=== PATIENT | female | born 1970 | race African-American/Black ===

== ENCOUNTER 2017-05-17 00:10 | Emergency (ER) | payer OTHER ==
[~2017-05-17] VITALS: Ht 162.6 cm; Wt 118.0 kg
[~2017-05-17 00:10] MED LIST: AMLODIPINE5 MG PO; AMOXICILLIN500 MG OR; AMOXICILLIN500 MG PO; ATORVASTATIN CA40 MG PO; B COMPLE4 PO; BENADRYL 25MG C25 MG PO; CALCIUM500 M1 OR; CIMETIDINE400 MG PO; CITALOPRAM20 MG; CYCLOBENZAPR10 MG PO; EDGE PO; FLEXERIL OR; FLEXERIL PO; FLEXERIL5 M1 PO; HYDROCODONE/ACE1 TA1 OR; IBUPROFEN800 MG PO; IRON325 MG OR; KEFLEX500 M1 PO; LIPITOR40 MG PO; LISINOPRIL10 MG; LOPRESSOR25 M1 PO; LORATADINE10 M1 PO; LORTAB 5 OR; LORTAB 5/3255 MG PO; MECLIZINE25 MG PO; MEDDOSEPAK PO; METFORMIN500 MG PO; NAPROSYN500 MG PO; NAPROXEN375 MG OR; NO HOME MEDS; NORVASC2.5 MG PO; NORVASC5 MG PO; OMEGA-3 FISH1000 MG PO; OS-CAL 500500 M1 PO; OXYCODONE/ACETA1 TA1 PO; PERCOCET 10/31 COMBO PO; PROAIR HFA IN; ROBITUSSI2 OR; TAM75CAP PO; ZPAK OR
[2017-05-17 01:39] LABS: HEMATOCRIT 35.9 % (37.0-47.0); HEMOGLOBIN 11.5 g/dl (12.0-16.0); IMMATURE GRANULOCYTES 0.2 % (0.0-1.0); MEAN CELL VOLUME 82.7 fL CALC (80.0-100.0); MEAN CORPUSCULAR HGB 26.5 pG CALC (26.0-32.0); NEUT# 5.43 thou/uL (2.00-7.15); RED BLOOD COUNT 4.34 mill/uL (4.20-5.60); RED CELL DISTRI WIDTH 14.2 % (11.5-15.5)
[2017-05-17 01:53] LABS: ALBUMIN 4.4 g/dL (3.2-5.0); ALKALINE PHOSPHATASE 80 u/l (38-126); ANION GAP 17 (6-22 (CALC)); BUN 9 mg/dL (7-17); BUN/CREATININE RATIO 13 (12-20 (CALC)); CALCIUM 9.9 mg/dL (8.4-10.2); CARBON DIOXIDE 25 mmol/l (22-30); CHLORIDE 104 mmol/l (95-108); CREATININE 0.7 mg/dL (0.5-1.0); GFR > 60 ML/MIN (>=60 (CALC)); GFR FOR AFR.AMER. > 60 ML/MIN (>=60 (CALC)); GLUCOSE 164 mg/dL (65-105); POTASSIUM 3.6 mmol/l (3.5-5.1); SGOT/AST 17 u/l (14-36); SGPT/ALT 29 u/l (9-52); SODIUM 142 mmol/l (137-146); TOTAL PROTEIN 7.3 g/dL (6.3-8.2)
[2017-05-17 02:01] LABS: INFLUENZA A NONE DETECTED (NONE DETECT); INFLUENZA B NONE DETECTED (NONE DETECT)
[2017-05-17 02:05] LABS: MYOGLOBIN 17 ng/mL (0 - 62)
[2017-05-17 04:00] LABS: URINE BILIRUBIN - DIPSTICK NEGATIVE (NEGATIVE); URINE BLOOD DIPSTICK TRACE-LYSED (NEGATIVE); URINE CLARITY CLEAR; URINE COLOR YELLOW; URINE GLUCOSE - DIPSTICK NEGATIVE (NEGATIVE); URINE KETONE TRACE mg/dL (NEGATIVE); URINE LEUK ESTERASE NEGATIVE (NEGATIVE); URINE NITRITE - DIPSTICK NEGATIVE (Negative); URINE PROTEIN - DIPSTICK NEGATIVE (NEG-TRACE); URINE UROBILINOGEN - DIPSTICK 0.2 E.U./dL (0.2)
[2017-05-17] MEDS ORDERED: AMOXICILLIN500 M2 PO ×2 (04:03→04:21)
[2017-05-17 04:30] VITALS: BP 149/72
== END 2017-05-17 04:36 | disposition home or self-care (01) | DRG 153 ==
LOC: ED 00:10
PROVIDERS: Emergency Medicine
DX: J02.0 Streptococcal pharyngitis (principal); R50.9 Fever, unspecified

== ENCOUNTER 2018-09-02 22:00 | Emergency (ER) | payer BC ==
[~2018-09-02] VITALS: Ht 162.6 cm; Wt 113.6 kg
[~2018-09-02 22:00] MED LIST changes: +AMOXICILLIN500 M2 PO
[2018-09-02] MEDS ORDERED: FARXIGA10 MG PO (22:19)
[2018-09-02] MEDS ORDERED: MELOXICAM15 MG PO (22:19)
[2018-09-02] MEDS ORDERED: DILTIAZEM240 MG PO (22:20)
[2018-09-02] MEDS ORDERED: DULOXETINE HCL30 MG PO (22:21)
[2018-09-02] MEDS ORDERED: ASPIRINCHW 81MG PO (22:21)
[2018-09-02] MEDS ORDERED: TRULICITY0.75 MG/0. (22:22)
[2018-09-02 23:09] LABS: CPK 51 u/l (30-165)
[2018-09-02 23:20] LABS: MYOGLOBIN 17 ng/mL (0 - 62)
[2018-09-03] MEDS ORDERED: BACLOFEN10 MG PO (01:20)
[2018-09-03 01:30] VITALS: BP 134/80
== END 2018-09-03 01:34 | disposition home or self-care (01) | DRG 556 ==
LOC: ED 22:00
PROVIDERS: Family Medicine
DX: M62.838 Other muscle spasm (principal); I10 Essential (primary) hypertension; E11.9 Type 2 diabetes mellitus without complications; Z96.652 Presence of left artificial knee joint

== ENCOUNTER → 2018-10-04 | Outpatient (REF) | payer BC ==
[~2018-10-04] MED LIST changes: +ASPIRINCHW 81MG PO; +ATORVASTATIN CA10 MG PO; +BACLOFEN10 MG PO; +DILTIAZEM240 MG PO; +DULOXETINE HCL30 MG PO; +FARXIGA10 MG PO; +FLUCONAZOLE150 MG PO; +MELOXICAM15 MG PO; +PROPRANOLOL80 M1 PO; +TRULICITY0.75 MG/0. SC
[2018-10-04 11:37] LABS: GFR > 60 ML/MIN (>=60 (CALC)); GFR FOR AFR.AMER. > 60 ML/MIN (>=60 (CALC))
== END | disposition home or self-care (01) | DRG 103 ==
LOC: CT 11:12
PROVIDERS: ATTEND Nurse Practitioner Family
DX: R51 Headache (principal); J32.9 Chronic sinusitis, unspecified

== ENCOUNTER → 2018-10-11 | Outpatient (REF) | payer BC | END | disposition home or self-care (01) | DRG 556 | LOC: MRI 09-24 10:30 | PROVIDERS: ATTEND Orthopaedic Surgery | DX: M25.512 Pain in left shoulder (principal); Z98.890 Other specified postprocedural states ==

== ENCOUNTER 2018-10-22 06:33 | Observation (INO) | payer BC ==
[~2018-10-22] VITALS: Ht 162.6 cm; Wt 120.7 kg
[~2018-10-22 06:33] MED LIST changes: -ATORVASTATIN CA10 MG PO; -FLUCONAZOLE150 MG PO; -PROPRANOLOL80 M1 PO
--- NOTE | 2018-10-22 06:50 | NUR ---
WHEELCHAIR TO ER ROOM 9, TO BED
--- NOTE | 2018-10-22 07:05 | NUR ---
NITRO BID PLACED TO RIGHT UPPER CHEST TO TREAT CHEST PAIN 03/26.
[2018-10-22] MEDS ORDERED: FLUCONAZOLE150 MG PO (07:14)
[2018-10-22] MEDS ORDERED: ATORVASTATIN CA10 MG PO (07:15)
[2018-10-22] MEDS ORDERED: PROPRANOLOL80 M1 PO (07:15)
[2018-10-22 07:17] LABS: HEMOGLOBIN 11.9 g/dl (12.0-16.0); IMMATURE GRANULOCYTES 0.4 % (0.0-5.0); MEAN CELL VOLUME 83.5 fL CALC (80.0-100.0); MEAN CORPUSCULAR HGB 26.2 pG CALC (26.0-32.0); MEAN CORPUSCULAR HGB CONC 31.3 g/L CALC (32.0-36.0); NEUT# 4.23 thou/uL (2.00-7.15); RED BLOOD COUNT 4.55 mill/uL (4.20-5.60); RED CELL DISTRI WIDTH 13.8 % (11.5-15.5)
--- NOTE | 2018-10-22 07:28 | NUR ---
PATIENT REPORTS INCREASED CHEST PAIN, PAIN NOTED TO BE REPRODUCIBLE. RATES /10. REPORTS NO CHANGE IN PAIN AFTER NITRO BID PACED TO CHEST. INFORMED.
[2018-10-22 07:33] LABS: ALBUMIN 4.4 g/dL (3.2-5.0); ALKALINE PHOSPHATASE 79 u/l (38-126); ANION GAP 14 (6-22 (CALC)); BILIRUBIN, TOTAL 0.6 mg/dL (0.0-1.4); BUN 12 mg/dL (7-17); BUN/CREATININE RATIO 27 (12-20 (CALC)); CARBON DIOXIDE 24 mmol/l (22-30); CHLORIDE 103 mmol/l (95-108); CREATININE 0.5 mg/dL (0.5-1.0); GFR > 60 ML/MIN (>=60 (CALC)); GFR FOR AFR.AMER. > 60 ML/MIN (>=60 (CALC)); POTASSIUM 4.1 mmol/l (3.5-5.1); SGOT/AST 28 u/l (14-36); SODIUM 138 mmol/l (137-146); TOTAL PROTEIN 7.1 g/dL (6.3-8.2)
[2018-10-22 07:45] LABS: MYOGLOBIN 15 ng/mL (0 - 62)
[2018-10-22 07:55] LABS: ACT PARTIAL THROMBO TIME 27.1 SECONDS (20.0-32.5); INTERNATIONAL NORMALIZED RATIO 0.9 RATIO (0.7-1.3); PROTHROMBIN TIME 9.4 SECONDS (9.0-12.5)
--- NOTE | 2018-10-22 08:04 | NUR ---
PATIENT REPORTS CHEST PRESSURE 5/10 AFTER 30 MG OF TORADOL IV GIVEN. AT BEDSIDE.
[2018-10-22 08:28] LABS: URINE BILIRUBIN - DIPSTICK NEGATIVE (NEGATIVE); URINE BLOOD DIPSTICK TRACE-LYSED (NEGATIVE); URINE COLOR YELLOW; URINE GLUCOSE - DIPSTICK 100 mg/dL (NEGATIVE); URINE KETONE NEGATIVE (NEGATIVE); URINE LEUK ESTERASE TRACE (NEGATIVE); URINE NITRITE - DIPSTICK NEGATIVE (Negative); URINE PROTEIN - DIPSTICK NEGATIVE (NEG-TRACE); URINE SPECIFIC GRAVITY 1.015; URINE UROBILINOGEN - DIPSTICK 0.2 E.U./dL (0.2)
[2018-10-22 08:34] LABS: BARBITURATES NEGATIVE (NEGATIVE); COCAINE NEGATIVE (NEGATIVE); METHADONE NEGATIVE (NEGATIVE); OXCYCODONE NEGATIVE (NEGATIVE); TETRAHYDROCANNABIONOL NEGATIVE (NEGATIVE); TRICYLIC ANTIDEPRESSANTS NEGATIVE (NEGATIVE)
--- NOTE | 2018-10-22 09:00 | NUR ---
PATIENT REPORTS CHEST PRESSURE 5/10. INFORMED OF WAIT TIME. VERBAL UNDERSTANDING. FAMILY AT BEDSIDE.
--- NOTE | 2018-10-22 09:05 | NUR ---
STROKE SCALE COMPLETED AFTER PATIENT REPORTS RIGHT SIDE OF FACE FEELING "DIFFERECT" NO FACIAL DROOP, PATIENT DENIES ANY SENSORY CHANGE. NIH SCALE OF 0.
--- NOTE | 2018-10-22 09:07 | NUR ---
GENEVIEVE REPORTS NURSE NOT AVAILABLE FOR REPORT AT THIS TIME.
--- NOTE | 2018-10-22 09:18 | NUR ---
REPORT GIVEN TO JOSEFINA FRANK.
--- NOTE | 2018-10-22 09:35 | NUR ---
PATIENT TRANSPORTED TO [facility] VIA STRETCHER WITH TELE IN PLACE. JOSEFINA FRANK INFORMED OF PATIENT ARRIVAL TO FLOOR. CARE RELINQUISHED.
--- NOTE | 2018-10-22 09:36 | NUR ---
PT TRANSPORTED TO [facility] VIA STRETCHER ACCOMPIANED BY EZEQUIEL BHAGAT. PT AMBULATED FROM STRETCHER TO BED W/ STEADY GAIT. VS DONE. PT A/O X3. SPEECH IS CLEAR. RESP EVEN AND UNLABORED. LUNG SOUNDS CLEAR. BOWEL SOUNDS ACTIVE X4. #20 RAC SL. FLUSHED AND PATENT. SITE APPEARS HEALTHY. SKIN INTACT. PT DENIES ANY PAIN OR NEEDS AT THIS TIME. POC DISCUSSED. SAFETY PRECAUTIONS IN PLACE. CALL LIGHT IN REACH. WILL CONTINUE TO MONITOR.
[2018-10-22 10:52] VITALS: BP 157/93
[2018-10-22 12:00] VITALS: BP 133/80
--- NOTE | 2018-10-22 12:15 | NUR ---
PT RESTING IN BED. C/O SLIGHT DULL CHEST PAIN. 3 OUT OF 10 ON PAIN SCALE. BED ADJUSTED FOR COMFORT. RELAXATION TECHNIQUES IN PLACE. PT DENIES ANY FURTHER NEEDS. CALL LIGHT IN REACH. WILL CONTINUE TO MONITOR.
--- NOTE | 2018-10-22 16:00 | NUR ---
PT RESTING IN BED. NO C/O PAIN OR NEEDS. TELE IN PLACE. DAUGHTER AT BEDSIDE. WILL CONTINUE TO MONITOR.
--- NOTE | 2018-10-22 19:00 | NUR ---
RECEIVED REPORT FROM DAY SHIFT NURSE. PT RESTING IN BED WATCHING TV, NO NEEDS AT THIS TIME. CALL CHERRY IN REACH. WILL CONTINUE TO MONITOR.
[2018-10-22 19:35] VITALS: BP 132/67
--- NOTE | 2018-10-22 22:05 | NUR ---
PT RESTING QUIETLY IN BED FAMILY AT BEDSIDE. PT IS A&0 x3. ASSESMENT COMPLETED AT THIS TIME( SEE INTERVENTIONS). LUNG SOUNDS CLEAR, HEART SOUNDS NORMAL, NO C/O CHEST PAIN, BOWEL SOUNDS ACTIVE. NO SWELLING OR EDEMA NOTED. NO NEEDS ATT THIS TIME CALL CHERRY IN REACH. WILL CONTINUE TO MONITOR.
[2018-10-22 23:40] VITALS: BP 118/63
--- NOTE | 2018-10-23 | NUR ---
PT RESTING QUIETYL IN BED WITH EYES CLOESD. NO S/S OF DISTRESS NOTED.
[2018-10-23 04:15] VITALS: BP 121/80
--- NOTE | 2018-10-23 05:00 | NUR ---
PT REQUESTING TO TAKE A SHOWER AT THIS TIME. PT SET UP AND LINENS CHANGED. WILL CONTINUE TO MO NITOR.
[2018-10-23 05:33] LABS: HEMATOCRIT 36.3 % (37.0-47.0); HEMOGLOBIN 11.3 g/dl (12.0-16.0); IMMATURE GRANULOCYTES 0.3 % (0.0-5.0); MEAN CELL VOLUME 85.2 fL CALC (80.0-100.0); MEAN CORPUSCULAR HGB 26.5 pG CALC (26.0-32.0); MEAN CORPUSCULAR HGB CONC 31.1 g/L CALC (32.0-36.0); NEUT# 3.63 thou/uL (2.00-7.15); RED BLOOD COUNT 4.26 mill/uL (4.20-5.60)
[2018-10-23 06:00] LABS: ALKALINE PHOSPHATASE 68 u/l (38-126); AMYLASE 69 u/l (30-110); ANION GAP 13 (6-22 (CALC)); BILIRUBIN, TOTAL 0.5 mg/dL (0.0-1.4); BUN 15 mg/dL (7-17); BUN/CREATININE RATIO 27 (12-20 (CALC)); CARBON DIOXIDE 28 mmol/l (22-30); CHLORIDE 101 mmol/l (95-108); CREATININE 0.5 mg/dL (0.5-1.0); GFR > 60 ML/MIN (>=60 (CALC)); GFR FOR AFR.AMER. > 60 ML/MIN (>=60 (CALC)); LIPASE 192 u/l (23-300); MAGNESIUM 1.9 mg/dL (1.6-2.3); POTASSIUM 4.5 mmol/l (3.5-5.1); SGOT/AST 20 u/l (14-36); SODIUM 138 mmol/l (137-146); TOTAL PROTEIN 6.5 g/dL (6.3-8.2)
--- NOTE | 2018-10-23 07:25 | NUR ---
PT REPORT RECIEVED FROM JOSEFINA NARANJO. PT RESTING. NO S/S OF DISTRESS. CALL LIGHT IN REACH. WILL CONTINUE TO MONITOR.
[2018-10-23 08:19] VITALS: BP 134/88
--- NOTE | 2018-10-23 08:19 | NUR ---
PT A/O X3. SPEECH IS CLEAR. PT C/O PRESSURE TO CHEST 3 OUT OF 10 ON PAIN SCALE. PT ALSO STATES CHEST PAIN IS A LOT BETTER FROM YESTERDAY. REPOSITIONED IN BED FOR COMFORT. RESP EVEN AND UNLABORED. LUNG SOUNDS CLEAR. TELE IN PLACE. BOWEL SOUNDS ACTIVE X4. STRONG RADIAL AND PEDAL PULSES. #20 RAC SL. FLUSHED AND PATENT. SITE APPEARS HEALTHY. SKIN INTACT. PT DENIES ANY FURTHER NEEDS. POC DISCUSSED. SAFETY PRECAUTIONS IN PLACE. CALL LIGHT IN REACH. WILL CONTINUE TO MONITOR.
[2018-10-23 10:17] LABS: CHOLESTEROL HDL RATIO 3.7 (<4.4 (CALC))
--- NOTE | 2018-10-23 11:54 | NUR ---
PT UP TO RESTROOM. NO C/O PAIN OR NEEDS. TELE IN PLACE. CALL LIGHT IN REACH. WILL CONTINUE TO MONITOR.
[2018-10-23 13:15] VITALS: BP 145/96
[2018-10-23 16:27] VITALS: BP 142/99
--- NOTE | 2018-10-23 16:30 | NUR ---
D/C INSTRUCTIONS DISCUSSED W/ PT. PT STATES UNDERSTANDING. IV REMOVED. CATHETER INTACT. TELE REMOVED. PT GETTING DRESSED.
--- NOTE | 2018-10-23 16:37 | NUR ---
Discharge instructions given. Patient verbalizes understanding of same. Discharged in stable condition via Wheelchair to Home with family. All belongings sent with pt.
== END 2018-10-23 16:37 | disposition home or self-care (01) | DRG 313 ==
LOC: ED 06:33 → ED-I 08:03 → ED 08:12 → MS2 08:13 → ED 08:30 → ED-I 08:30 → MS2 10-23 16:37
PROVIDERS: Emergency Medicine; Nurse Practitioner Family; ADMIT Internal Medicine Nephrology; ATTEND Internal Medicine Nephrology
DX: R07.2 Precordial pain (principal); Z68.42 Body mass index [BMI] 45.0-49.9, adult; E11.9 Type 2 diabetes mellitus without complications; I10 Essential (primary) hypertension; E78.5 Hyperlipidemia, unspecified; F32.9 Major depressive disorder, single episode, unspecified; F41.9 Anxiety disorder, unspecified; M54.9 Dorsalgia, unspecified; E66.01 Morbid (severe) obesity due to excess calories
CPT/HCPCS: G0378

== ENCOUNTER 2019-01-20 21:17 | Emergency (ER) | payer BC ==
[~2019-01-20] VITALS: Ht 162.6 cm; Wt 115.0 kg
[~2019-01-20 21:17] MED LIST changes: +ATORVASTATIN CA10 MG PO; +FLUCONAZOLE150 MG PO; +PROPRANOLOL80 M1 PO
[2019-01-20] MEDS ORDERED: OXYCODONE HCL5 MG PO (21:56)
[2019-01-20] MEDS ORDERED: VISTARIL PO (22:25)
[2019-01-20 22:35] VITALS: BP 182/92
== END 2019-01-20 22:35 | disposition home or self-care (01) | DRG 607 ==
LOC: ED 21:17
DX: L29.9 Pruritus, unspecified (principal); T40.2X5A Adverse effect of other opioids, initial encounter

== ENCOUNTER 2019-03-06 10:51 | Emergency (ER) | payer BC ==
[~2019-03-06] VITALS: Ht 162.6 cm; Wt 150.0 kg
[~2019-03-06 10:51] MED LIST changes: +OXYCODONE HCL5 MG PO; +VISTARIL PO
[2019-03-06 11:36] LABS: HEMATOCRIT 38.6 % (37.0-47.0); HEMOGLOBIN 11.7 g/dl (12.0-16.0); IMMATURE GRANULOCYTES 0.3 % (0.0-5.0); MEAN CELL VOLUME 85.2 fL CALC (80.0-100.0); MEAN CORPUSCULAR HGB 25.8 pG CALC (26.0-32.0); MEAN CORPUSCULAR HGB CONC 30.3 g/L CALC (32.0-36.0); NEUT# 3.91 thou/uL (2.00-7.15); RED BLOOD COUNT 4.53 mill/uL (4.20-5.60); RED CELL DISTRI WIDTH 14.3 % (11.5-15.5)
[2019-03-06 11:51] LABS: ALKALINE PHOSPHATASE 99 u/l (38-126); ANION GAP 17 (6-22 (CALC)); BILIRUBIN, TOTAL 0.6 mg/dL (0.0-1.4); BUN 10 mg/dL (7-17); BUN/CREATININE RATIO 22 (12-20 (CALC)); C-REACTIVE PROTEIN 0.5 mg/dL (0-0.9); CARBON DIOXIDE 26 mmol/l (22-30); CHLORIDE 103 mmol/l (95-108); CREATININE 0.5 mg/dL (0.5-1.0); GFR > 60 ML/MIN (>=60 (CALC)); GFR FOR AFR.AMER. > 60 ML/MIN (>=60 (CALC)); POTASSIUM 4.7 mmol/l (3.5-5.1); SGOT/AST 27 u/l (14-36); SODIUM 142 mmol/l (137-146)
[2019-03-06 11:53] LABS: TOTAL PROTEIN 8.1 g/dL (6.3-8.2)
[2019-03-06] MEDS ORDERED: DILAUDID2 MG PO (14:35)
[2019-03-06] MEDS ORDERED: TORADOL PO (14:35)
[2019-03-06 14:45] VITALS: BP 176/98
== END 2019-03-06 15:02 | disposition home or self-care (01) | DRG 566 ==
LOC: ED 10:51
PROVIDERS: Emergency Medicine
DX: M25.461 Effusion, right knee (principal); M25.561 Pain in right knee; E11.9 Type 2 diabetes mellitus without complications; I10 Essential (primary) hypertension; Z96.651 Presence of right artificial knee joint; Z79.84 Long term (current) use of oral hypoglycemic drugs

== ENCOUNTER 2019-03-08 03:19 | Observation (INO) | payer BC ==
[~2019-03-08] VITALS: Ht 162.6 cm; Wt 116.0 kg
[~2019-03-08 03:19] MED LIST changes: +DILAUDID2 MG PO; +TORADOL PO
[2019-03-08 03:44] LABS: HEMATOCRIT 37.8 % (37.0-47.0); HEMOGLOBIN 11.6 g/dl (12.0-16.0); IMMATURE GRANULOCYTES 0.4 % (0.0-5.0); MEAN CELL VOLUME 83.8 fL CALC (80.0-100.0); MEAN CORPUSCULAR HGB 25.7 pG CALC (26.0-32.0); MEAN CORPUSCULAR HGB CONC 30.7 g/L CALC (32.0-36.0); NEUT# 6.05 thou/uL (2.00-7.15); RED BLOOD COUNT 4.51 mill/uL (4.20-5.60); RED CELL DISTRI WIDTH 14.1 % (11.5-15.5)
[2019-03-08 03:56] LABS: ALKALINE PHOSPHATASE 97 u/l (38-126); ANION GAP 18 (6-22 (CALC)); BILIRUBIN, TOTAL 0.8 mg/dL (0.0-1.4); BUN 10 mg/dL (7-17); BUN/CREATININE RATIO 16 (12-20 (CALC)); CARBON DIOXIDE 25 mmol/l (22-30); CHLORIDE 102 mmol/l (95-108); CREATININE 0.6 mg/dL (0.5-1.0); GFR > 60 ML/MIN (>=60 (CALC)); GFR FOR AFR.AMER. > 60 ML/MIN (>=60 (CALC)); POTASSIUM 4.2 mmol/l (3.5-5.1); SGOT/AST 20 u/l (14-36); SODIUM 140 mmol/l (137-146)
[2019-03-08 05:55] VITALS: BP 172/96
[2019-03-08 07:38] VITALS: BP 208/114
[2019-03-08 08:43] VITALS: BP 192/95
[2019-03-08 12:00] VITALS: BP 178/85
[2019-03-08 16:40] VITALS: BP 140/65
== END 2019-03-08 17:32 | disposition home or self-care (01) | DRG 560 ==
LOC: ED 03:19 → ED-I 04:31 → ED 04:46 → ICU 04:47
PROVIDERS: Emergency Medicine; ADMIT Internal Medicine Geriatric Medicine; ATTEND Internal Medicine Geriatric Medicine
PROC: 0S9C3ZZ Drainage of Right Knee Joint, Percutaneous Approach (ICD-10-PCS; principal; 2019-03-08)
DX: T84.84XA Pain due to internal orthopedic prosthetic devices, implants and grafts, initial encounter (principal); Z68.41 Body mass index [BMI] 40.0-44.9, adult; E11.9 Type 2 diabetes mellitus without complications; M25.461 Effusion, right knee; I10 Essential (primary) hypertension; E78.5 Hyperlipidemia, unspecified; F41.9 Anxiety disorder, unspecified; E66.9 Obesity, unspecified; Y83.1 Surgical operation with implant of artificial internal device as the cause of abnormal reaction of the patient, or of later complication, without mention of misadventure at the time of the procedure; Z96.653 Presence of artificial knee joint, bilateral

== ENCOUNTER 2019-05-17 15:51 | Observation (INO) | payer BC ==
[~2019-05-17] VITALS: Ht 162.6 cm; Wt 115.5 kg
[2019-05-17] MEDS ORDERED: HYDROMORPHON4 MG PO (16:12)
[2019-05-17] MEDS ORDERED: METHYLPRED4 MG PO (16:13)
[2019-05-17] MEDS ORDERED: ICAPS PO (16:14)
[2019-05-17 16:15] LABS: HEMATOCRIT 39.7 % (37.0-47.0); HEMOGLOBIN 12.5 g/dl (12.0-16.0); IMMATURE GRANULOCYTES 1.7 % (0.0-5.0); MEAN CELL VOLUME 79.2 fL CALC (80.0-100.0); MEAN CORPUSCULAR HGB CONC 31.5 g/L CALC (32.0-36.0); NEUT# 7.18 thou/uL (2.00-7.15); RED BLOOD COUNT 5.01 mill/uL (4.20-5.60)
[2019-05-17 16:28] LABS: ANION GAP 20 (6-22 (CALC)); BUN 11 mg/dL (7-17); BUN/CREATININE RATIO 13 (12-20 (CALC)); CARBON DIOXIDE 23 mmol/l (22-30); CHLORIDE 102 mmol/l (95-108); CREATININE 0.8 mg/dL (0.5-1.0); GFR > 60 ML/MIN (>=60 (CALC)); GFR FOR AFR.AMER. > 60 ML/MIN (>=60 (CALC)); POTASSIUM 4.6 mmol/l (3.5-5.1); SODIUM 140 mmol/l (137-146)
[2019-05-17 19:16] VITALS: BP 163/74
[2019-05-18 00:25] VITALS: BP 150/79
[2019-05-18 04:00] VITALS: BP 146/71
[2019-05-18 07:40] VITALS: BP 146/89
[2019-05-18 11:45] VITALS: BP 151/72
[2019-05-18 13:34] VITALS: BP 151/72
== END 2019-05-18 13:50 | disposition home or self-care (01) | DRG 313 ==
LOC: ED 15:51 → ED-I 18:00 → ED 18:13 → MS2 18:14
PROVIDERS: Family Medicine; ADMIT Internal Medicine; ATTEND Internal Medicine
DX: R07.89 Other chest pain (principal); I10 Essential (primary) hypertension; E11.9 Type 2 diabetes mellitus without complications; I49.9 Cardiac arrhythmia, unspecified; F41.9 Anxiety disorder, unspecified; M19.90 Unspecified osteoarthritis, unspecified site; G47.33 Obstructive sleep apnea (adult) (pediatric); E78.5 Hyperlipidemia, unspecified; E66.9 Obesity, unspecified; Z79.82 Long term (current) use of aspirin; Z79.899 Other long term (current) drug therapy
CPT/HCPCS: G0378; J1650; Q9967

== ENCOUNTER 2019-09-01 | Emergency (ER) | payer BC ==
[~2019-09-01] MED LIST changes: +HYDROMORPHON4 MG PO; +ICAPS PO; +METHYLPRED4 MG PO
[2019-09-01 20:10] LABS: HEMATOCRIT 35.9 % (37.0-47.0); HEMOGLOBIN 11.3 g/dl (12.0-16.0); IMMATURE GRANULOCYTES 0.2 % (0.0-5.0); MEAN CELL VOLUME 80.7 fL CALC (80.0-100.0); MEAN CORPUSCULAR HGB 25.4 pG CALC (26.0-32.0); MEAN CORPUSCULAR HGB CONC 31.5 g/L CALC (32.0-36.0); NEUT# 5.19 thou/uL (2.00-7.15); RED BLOOD COUNT 4.45 mill/uL (4.20-5.60); RED CELL DISTRI WIDTH 13.9 % (11.5-15.5)
[2019-09-01 20:26] LABS: ALBUMIN 4.6 g/dL (3.2-5.0); ALKALINE PHOSPHATASE 87 u/l (38-126); AMYLASE 84 u/l (30-110); ANION GAP 16 (6-22 (CALC)); BILIRUBIN, TOTAL 0.9 mg/dL (0.0-1.4); BUN 11 mg/dL (7-17); BUN/CREATININE RATIO 26 (12-20 (CALC)); CARBON DIOXIDE 24 mmol/l (22-30); CHLORIDE 98 mmol/l (95-108); CREATININE 0.4 mg/dL (0.5-1.0); GFR > 60 ML/MIN (>=60 (CALC)); GFR FOR AFR.AMER. > 60 ML/MIN (>=60 (CALC)); LIPASE 136 u/l (23-300); SGOT/AST 18 u/l (14-36); SODIUM 135 mmol/l (137-146); TOTAL PROTEIN 7.9 g/dL (6.3-8.2)
[2019-09-01 20:29] LABS: D-DIMER 1.38 mg/L (0.19-0.60)
[2019-09-01 20:30] LABS: POTASSIUM 3.3 mmol/l (3.5-5.1)
[2019-09-01 20:38] LABS: MYOGLOBIN 16 ng/mL (0 - 62)
[2019-09-01] MEDS ORDERED: TORADOL PO (22:48)
== END 2019-09-01 22:52 | disposition home or self-care (01) | DRG 313 ==
PROVIDERS: Family Medicine
DX: R07.89 Other chest pain (principal); E11.9 Type 2 diabetes mellitus without complications; I10 Essential (primary) hypertension
CPT/HCPCS: Q9967

== ENCOUNTER 2019-09-14 | Emergency (ER) | payer BC ==
[2019-09-14 04:27] LABS: HEMATOCRIT 37.4 % (37.0-47.0); HEMOGLOBIN 11.9 g/dl (12.0-16.0); IMMATURE GRANULOCYTES 0.1 % (0.0-5.0); MEAN CELL VOLUME 81.7 fL CALC (80.0-100.0); MEAN CORPUSCULAR HGB CONC 31.8 g/L CALC (32.0-36.0); NEUT# 3.49 thou/uL (2.00-7.15); RED BLOOD COUNT 4.58 mill/uL (4.20-5.60); RED CELL DISTRI WIDTH 13.8 % (11.5-15.5)
[2019-09-14 04:40] LABS: ACT PARTIAL THROMBO TIME 26.9 SECONDS (20.0-32.5); INTERNATIONAL NORMALIZED RATIO 0.9 RATIO (0.7-1.3); PROTHROMBIN TIME 9.4 SECONDS (9.0-12.5)
[2019-09-14 04:42] LABS: ALBUMIN 4.6 g/dL (3.2-5.0); ALKALINE PHOSPHATASE 89 u/l (38-126); ANION GAP 17 (6-22 (CALC)); BUN 11 mg/dL (7-17); BUN/CREATININE RATIO 21 (12-20 (CALC)); CARBON DIOXIDE 23 mmol/l (22-30); CHLORIDE 101 mmol/l (95-108); CREATININE 0.5 mg/dL (0.5-1.0); GFR > 60 ML/MIN (>=60 (CALC)); GFR FOR AFR.AMER. > 60 ML/MIN (>=60 (CALC)); LIPASE 214 u/l (23-300); POTASSIUM 3.7 mmol/l (3.5-5.1); SGOT/AST 21 u/l (14-36); SODIUM 137 mmol/l (137-146)
[2019-09-14 04:43] LABS: BILIRUBIN, TOTAL 0.5 mg/dL (0.0-1.4)
[2019-09-14] MEDS ORDERED: METFORMIN1000 MG PO (04:53)
[2019-09-14] MEDS ORDERED: FLEXERIL PO ×2 (04:54→05:45)
[2019-09-14] MEDS ORDERED: PHENTERMINE37.5 MG PO (05:46)
[2019-09-14] MEDS ORDERED: IBUPROFEN600 MG PO (05:46)
[2019-09-14 06:41] LABS: URINE BILIRUBIN - DIPSTICK NEGATIVE (NEGATIVE); URINE BLOOD DIPSTICK NEGATIVE (NEGATIVE); URINE COLOR YELLOW; URINE GLUCOSE - DIPSTICK 100 mg/dL (NEGATIVE); URINE KETONE NEGATIVE (NEGATIVE); URINE LEUK ESTERASE NEGATIVE (NEGATIVE); URINE NITRITE - DIPSTICK NEGATIVE (Negative); URINE PH 6.5 (4.5-8.0); URINE PROTEIN - DIPSTICK NEGATIVE (NEG-TRACE); URINE UROBILINOGEN - DIPSTICK 0.2 E.U./dL (0.2)
[2019-09-14 06:43] LABS: BARBITURATES NEGATIVE (NEGATIVE); COCAINE NEGATIVE (NEGATIVE); METHADONE NEGATIVE (NEGATIVE); OXCYCODONE NEGATIVE (NEGATIVE); TETRAHYDROCANNABIONOL NEGATIVE (NEGATIVE); TRICYLIC ANTIDEPRESSANTS NEGATIVE (NEGATIVE)
== END 2019-09-14 07:12 | disposition home or self-care (01) | DRG 313 ==
DX: R07.89 Other chest pain (principal); F41.9 Anxiety disorder, unspecified; E11.9 Type 2 diabetes mellitus without complications; I10 Essential (primary) hypertension; Z79.84 Long term (current) use of oral hypoglycemic drugs

== ENCOUNTER 2021-08-29 13:01 | Emergency (ER) | payer MEDICARE ==
[~2021-08-29] VITALS: Ht 162.6 cm; Wt 115.0 kg
[~2021-08-29 13:01] MED LIST changes: +IBUPROFEN600 MG PO; +METFORMIN1000 MG PO; +PHENTERMINE37.5 MG PO
[2021-08-29 14:41] LABS: HEMATOCRIT 41.1 % (37.0-47.0); HEMOGLOBIN 12.9 g/dl (12.0-16.0); IMMATURE GRANULOCYTES 0.1 % (0.0-5.0); MEAN CELL VOLUME 85.3 fL CALC (80.0-100.0); MEAN CORPUSCULAR HGB 26.8 pG CALC (26.0-32.0); MEAN CORPUSCULAR HGB CONC 31.4 g/dL CAL (32.0-36.0); NEUT# 3.9 thou/uL (2.00-7.15); RED BLOOD COUNT 4.82 mill/uL (4.20-5.60); RED CELL DISTRI WIDTH 13.3 % (11.5-15.5)
[2021-08-29 14:47] LABS: ALBUMIN 4.7 g/dL (3.2-5.0); ALKALINE PHOSPHATASE 97 u/l (38-126); BUN 8 mg/dL (7-17); BUN/CREATININE RATIO 15 (12-20 (CALC)); CHLORIDE 100 mmol/l (95-108); CREATININE 0.5 mg/dL (0.5-1.0); GFR > 60 ML/MIN (>=60 (CALC)); GFR FOR AFR.AMER. > 60 ML/MIN (>=60 (CALC)); POTASSIUM 4.2 mmol/l (3.5-5.1); SGOT/AST 22 u/l (14-36); SODIUM 139 mmol/l (137-146); TOTAL PROTEIN 8.4 g/dL (6.3-8.2)
[2021-08-29 14:48] LABS: URINE BILIRUBIN - DIPSTICK NEGATIVE (NEGATIVE); URINE BLOOD DIPSTICK NEGATIVE (NEGATIVE); URINE COLOR YELLOW; URINE GLUCOSE - DIPSTICK NEGATIVE (NEGATIVE); URINE KETONE NEGATIVE (NEGATIVE); URINE LEUK ESTERASE NEGATIVE (NEGATIVE); URINE PROTEIN - DIPSTICK NEGATIVE (NEG-TRACE); URINE SPECIFIC GRAVITY >=1.030; URINE UROBILINOGEN - DIPSTICK 0.2 E.U./dL (0.2)
[2021-08-29 14:50] LABS: ANION GAP 12 (6-22 (CALC)); BILIRUBIN, TOTAL 1.3 mg/dL (0.0-1.4); CARBON DIOXIDE 31 mmol/l (22-30)
[2021-08-29 14:52] LABS: URINE NITRITE - DIPSTICK NEGATIVE (Negative)
[2021-08-29 14:58] LABS: MYOGLOBIN 16 ng/mL (0 - 62)
[2021-08-29 16:00] VITALS: BP 130/76
== END 2021-08-29 16:00 | disposition home or self-care (01) ==
LOC: ED 13:01
PROVIDERS: Emergency Medicine
DX: F41.9 Anxiety disorder, unspecified (principal); I10 Essential (primary) hypertension; E11.9 Type 2 diabetes mellitus without complications; E78.00 Pure hypercholesterolemia, unspecified; Z79.84 Long term (current) use of oral hypoglycemic drugs

== ENCOUNTER 2021-10-26 09:04 | Emergency (ER) | payer MEDICARE ==
[~2021-10-26] VITALS: Ht 162.6 cm; Wt 130.0 kg
[2021-10-26] VITALS (7 sets, daily range): BP systolic 147–172; BP diastolic 92–98
[2021-10-26] MEDS ORDERED: GABAPENTIN100 MG PO (09:33)
[2021-10-26] MEDS ORDERED: AMOXICILLIN500 M2 PO (11:33)
[2021-10-26] MEDS ORDERED: DECADRON4 MG PO (11:33)
== END 2021-10-26 12:25 | disposition home or self-care (01) ==
LOC: ED 09:04
DX: J04.0 Acute laryngitis (principal); I10 Essential (primary) hypertension; E11.9 Type 2 diabetes mellitus without complications; E78.00 Pure hypercholesterolemia, unspecified; Z79.84 Long term (current) use of oral hypoglycemic drugs

== ENCOUNTER 2022-05-19 07:06 | Emergency (ER) | payer MEDICARE ==
[~2022-05-19] VITALS: Ht 162.6 cm; Wt 118.0 kg
[~2022-05-19 07:06] MED LIST changes: +BACTRIM DS1 TAB PO; +DECADRON4 MG PO; +GABAPENTIN100 MG PO; +JARDIANCE25 MG PO
[2022-05-19 08:05] LABS: IMMATURE GRANULOCYTES 0.2 % (0.0-5.0); MEAN CORPUSCULAR HGB 25.9 pG CALC (26.0-32.0); MEAN CORPUSCULAR HGB CONC 31.2 g/dL CAL (32.0-36.0); NEUT# 1.84 thou/uL (2.00-7.15); RED BLOOD COUNT 4.59 mill/uL (4.20-5.60); RED CELL DISTRI WIDTH 14.4 % (11.5-15.5)
[2022-05-19 08:14] LABS: HEMATOCRIT 38.1 % (37.0-47.0); HEMOGLOBIN 11.9 g/dl (12.0-16.0)
[2022-05-19 08:20] LABS: INTERNATIONAL NORMALIZED RATIO 0.9 RATIO (0.7-1.3); PROTHROMBIN TIME 9.2 SECONDS (9.0-12.5)
[2022-05-19 08:22] LABS: ALBUMIN 4.5 g/dL (3.2-5.0); ALKALINE PHOSPHATASE 69 u/l (38-126); BILIRUBIN, TOTAL 0.7 mg/dL (0.0-1.4); BUN 7 mg/dL (7-17); BUN/CREATININE RATIO 12 (12-20 (CALC)); CHLORIDE 101 mmol/l (95-108); CREATININE 0.6 mg/dL (0.5-1.0); GFR FOR AFR.AMER. > 60 ML/MIN (>=60 (CALC)); GFR OTHER RACES > 60 ML/MIN (>=60 (CALC)); SGOT/AST 27 u/l (14-36); TOTAL PROTEIN 7.7 g/dL (6.3-8.2)
[2022-05-19 08:24] LABS: ANION GAP 17 (6-22 (CALC)); CARBON DIOXIDE 27 mmol/l (22-30); POTASSIUM 3.4 mmol/l (3.5-5.1); SODIUM 142 mmol/l (137-146)
[2022-05-19] MEDS ORDERED: PREDNISONE50 MG PO (12:31)
[2022-05-19] MEDS ORDERED: ZPAK PO (12:31)
[2022-05-19 12:45] VITALS: BP 152/81
== END 2022-05-19 12:56 | disposition home or self-care (01) ==
LOC: ED 07:06
PROVIDERS: Family Medicine
DX: R20.2 Paresthesia of skin (principal); R20.0 Anesthesia of skin; I10 Essential (primary) hypertension; E11.9 Type 2 diabetes mellitus without complications; E78.00 Pure hypercholesterolemia, unspecified; G47.33 Obstructive sleep apnea (adult) (pediatric); Z20.822 Contact with and (suspected) exposure to COVID-19
CPT/HCPCS: Q3014; Q9967

== ENCOUNTER 2022-08-16 10:17 | Emergency (ER) | payer MEDICARE ==
[~2022-08-16] VITALS: Ht 162.6 cm; Wt 118.2 kg
[~2022-08-16 10:17] MED LIST changes: +PREDNISONE50 MG PO; +ZPAK PO
[2022-08-16] MEDS ORDERED: METFORMIN HCL1000 MG PO (11:42)
[2022-08-16] MEDS ORDERED: EMGALITY120 MG/ML (11:48)
[2022-08-16] MEDS ORDERED: GABAPENTIN100 MG PO (11:49)
[2022-08-16] MEDS ORDERED: DULOXETINE HCL30 MG PO (11:49)
[2022-08-16] MEDS ORDERED: RIZATRIPTAN BEN10 MG PO (11:50)
[2022-08-16] MEDS ORDERED: DILTIAZEM HCL PO (11:53)
[2022-08-16] MEDS ORDERED: CEPHALEXIN500 M1 PO (12:06)
[2022-08-16 12:26] VITALS: BP 144/92
== END 2022-08-16 12:51 | disposition home or self-care (01) ==
LOC: ED 10:17
PROC: 0HQGXZZ Repair Left Hand Skin, External Approach (ICD-10-PCS; principal; 2022-08-16)
DX: S61.213A Laceration without foreign body of left middle finger without damage to nail, initial encounter (principal); I10 Essential (primary) hypertension; E11.9 Type 2 diabetes mellitus without complications; E78.00 Pure hypercholesterolemia, unspecified; W26.0XXA Contact with knife, initial encounter; Z79.85 Long-term (current) use of injectable non-insulin antidiabetic drugs; Z79.84 Long term (current) use of oral hypoglycemic drugs